=== PATIENT | female | born 2005 | race Caucasian/White ===

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

== ENCOUNTER 2023-05-01 13:32 | Emergency (ER) | payer OTHER ==
[~2023-05-01] VITALS: Ht 160 cm; Wt 72.6 kg
[2023-05-01] MEDS ORDERED: AMOX-CLAV 875-1 EACH PO (16:23)
[2023-05-01] MEDS ORDERED: CIPROFLOX-DEXA7.5 ML OT (16:23)
== END 2023-05-01 16:55 | disposition home or self-care (01) ==
LOC: ED 13:32
DX: H66.91 Otitis media, unspecified, right ear (principal); H60.91 Unspecified otitis externa, right ear; F90.9 Attention-deficit hyperactivity disorder, unspecified type; Z88.5 Allergy status to narcotic agent; Z88.8 Allergy status to other drugs, medicaments and biological substances; Z90.89 Acquired absence of other organs; Z98.890 Other specified postprocedural states

== ENCOUNTER 2024-01-08 18:39 | Emergency (ER) | payer OTHER ==
[~2024-01-08] VITALS: Ht 160 cm; Wt 72.6 kg
[~2024-01-08 18:39] MED LIST changes: +AMOX-CLAV 875-1 EACH PO; +CIPROFLOX-DEXA7.5 ML OT
[2024-01-08] MEDS ORDERED: MELOXICAM15 MG PO (21:50)
[2024-01-08] MEDS ORDERED: Ketorolac Tromethamine 60 MG/2 ML VIAL IM ONE (21:50)
== END 2024-01-08 22:10 | disposition home or self-care (01) ==
LOC: ED 18:39
DX: S20.212A Contusion of left front wall of thorax, initial encounter (principal); S20.211A Contusion of right front wall of thorax, initial encounter; F17.210 Nicotine dependence, cigarettes, uncomplicated; Z88.8 Allergy status to other drugs, medicaments and biological substances; Z88.5 Allergy status to narcotic agent; Z79.2 Long term (current) use of antibiotics; W51.XXXA Accidental striking against or bumped into by another person, initial encounter; Y93.89 Activity, other specified; Y92.89 Other specified places as the place of occurrence of the external cause; Y99.8 Other external cause status

== ENCOUNTER 2024-01-12 19:50 | Emergency (ER) | payer OTHER ==
[~2024-01-12] VITALS: Ht 160 cm; Wt 72.6 kg
[~2024-01-12 19:50] MED LIST changes: +MELOXICAM15 MG PO
[2024-01-12 21:09] LABS: HEMATOCRIT 34.3 % (37.0-47.0); MANUAL DIFF REFLEX YES; MEAN CELL VOLUME 85.3 fl (81.0-99.0); MEAN CORPUSCULAR HGB 27.9 pg (27.0-31.0); MEAN CORPUSCULAR HGB CONC 32.7 g/dl (33.0-37.0); MEAN PLATELET VOLUME 10.8 fl (9.6-12.3); PLATELET COUNT AUTOMATED 323 10*3/uL (130-400); RED BLOOD COUNT 4.02 10*6/uL (4.10-5.10); RED CELL DISTRI WIDTH 13.4 % (0-14.5); WHITE BLOOD COUNT 23.9 10*3/uL (4.8-10.8)
[2024-01-12 21:25] LABS: ALKALINE PHOSPHATASE 97 U/L (46-116); BUN 8 mg/dl (9-23); CHLORIDE 106 mmol/L (98-107); LIPASE 20 U/L (12-53); POTASSIUM 2.9 mmol/L (3.4-5.1); SGPT/ALT 23 U/L (5-49); TOTAL PROTEIN 6.8 gm/dL (6.0-8.0)
[2024-01-12 21:27] LABS: BURR CELLS FEW; PLATELET SUFFICIENCY NORMAL (NORMAL); POLYCHROMASIA SLIGHT; TOTAL CELLS COUNTED 100 #CELLS
[2024-01-12] MEDS ORDERED: POTASSIUM CHLORIDE 20 MEQ TAB PO ONE (23:55)
[2024-01-12] MEDS ORDERED: Ketorolac Tromethamine 60 MG/2 ML VIAL IM ONE (23:55)
[2024-01-13] MEDS ORDERED: Ondansetron Hydrochloride 4 MG TAB SL ONE (00:05)
== END 2024-01-13 01:15 | disposition home or self-care (01) ==
LOC: ED 19:50
PROVIDERS: Internal Medicine
DX: R10.10 Upper abdominal pain, unspecified (principal); E87.6 Hypokalemia; D72.89 Other specified disorders of white blood cells; D64.9 Anemia, unspecified; R11.0 Nausea; G47.10 Hypersomnia, unspecified; Z88.8 Allergy status to other drugs, medicaments and biological substances; Z88.5 Allergy status to narcotic agent; Z79.899 Other long term (current) drug therapy; Z79.2 Long term (current) use of antibiotics; Z98.890 Other specified postprocedural states

== ENCOUNTER → 2024-02-09 | Outpatient (CLI) | payer OTHER | END | disposition home or self-care (01) | LOC: US 10:30 | PROVIDERS: ATTEND Nurse Practitioner Women's Health | DX: Z32.01 Encounter for pregnancy test, result positive (principal); R10.9 Unspecified abdominal pain; Z3A.00 Weeks of gestation of pregnancy not specified ==

== ENCOUNTER 2024-03-21 13:10 | Emergency (ER) | payer OTHER ==
[~2024-03-21] VITALS: Ht 160 cm; Wt 72.6 kg
[2024-03-21] MEDS ORDERED: ACETAMINOPHEN 325 MG TAB PO ONE (13:45)
[2024-03-21] MEDS ORDERED: CLARITIN10 MG PO (14:53)
== END 2024-03-21 15:20 | disposition home or self-care (01) ==
LOC: ED 13:10
DX: O99.512 Diseases of the respiratory system complicating pregnancy, second trimester (principal); Z20.822 Contact with and (suspected) exposure to COVID-19; J06.9 Acute upper respiratory infection, unspecified; R51.9 Headache, unspecified; F90.9 Attention-deficit hyperactivity disorder, unspecified type; Z88.5 Allergy status to narcotic agent; Z88.8 Allergy status to other drugs, medicaments and biological substances; Z90.89 Acquired absence of other organs; Z98.890 Other specified postprocedural states; Z3A.15 15 weeks gestation of pregnancy

== ENCOUNTER 2024-05-27 15:32 | Emergency (ER) | payer OTHER ==
[~2024-05-27] VITALS: Ht 160 cm; Wt 64.9 kg
[~2024-05-27 15:32] MED LIST changes: +CLARITIN10 MG PO
[2024-05-27] MEDS ORDERED: CEPHALEXIN500 M1 PO (17:33)
[2024-05-27] MEDS ORDERED: Bactroban Oint22 GM T (17:33)
== END 2024-05-27 16:16 | disposition home or self-care (01) ==
LOC: ED 15:32
DX: L73.8 Other specified follicular disorders (principal); F90.9 Attention-deficit hyperactivity disorder, unspecified type; Z88.5 Allergy status to narcotic agent; Z91.040 Latex allergy status; Z91.013 Allergy to seafood; Z88.8 Allergy status to other drugs, medicaments and biological substances; Z98.890 Other specified postprocedural states; Z90.89 Acquired absence of other organs

== ENCOUNTER 2024-12-30 12:48 | Emergency (ER) | payer MEDICARE, MEDICAID ==
[~2024-12-30] VITALS: Ht 160 cm; Wt 63.5 kg
[~2024-12-30 12:48] MED LIST changes: +Bactroban Oint22 GM T; +CEPHALEXIN500 M1 PO
[2024-12-30] MEDS ORDERED: LISSAMINE GREEN 1.5 MG STRIP OP ONE (13:20)
[2024-12-30] MEDS ORDERED: Polymyxin B Sulfate/Trimetho 10 ML BOT OPH ONE (13:35)
== END 2024-12-30 13:46 | disposition home or self-care (01) ==
LOC: ED 12:48
DX: S05.02XA Injury of conjunctiva and corneal abrasion without foreign body, left eye, initial encounter (principal); Z79.899 Other long term (current) drug therapy; Z88.5 Allergy status to narcotic agent; Z91.040 Latex allergy status; Z91.013 Allergy to seafood; Z98.890 Other specified postprocedural states; X58.XXXA Exposure to other specified factors, initial encounter; Y93.89 Activity, other specified; Y92.89 Other specified places as the place of occurrence of the external cause; Y99.8 Other external cause status

== ENCOUNTER → 2025-03-15 | Outpatient (CLI) | payer MEDICARE, MEDICAID | END | disposition home or self-care (01) | LOC: CARD 10:21 | PROVIDERS: ATTEND Internal Medicine Cardiovascular Disease | DX: I49.8 Other specified cardiac arrhythmias (principal); R07.89 Other chest pain; Z87.59 Personal history of other complications of pregnancy, childbirth and the puerperium ==